=== PATIENT | female | born 1975 | race Caucasian/White ===

== ENCOUNTER → 2018-07-21 | Emergency (ER) | payer OTHER ==
[~2018-07-21] VITALS: Ht 157.5 cm; Wt 84.4 kg
[~2018-07-21] MED LIST: LEVSIN/SL0.125 MG PO; METOPROLOL TART25 MG PO; PEPCID40 MG PO; ZOFRAN4 MG PO
== END | disposition home or self-care (01) ==
LOC: ER 00:35
DX: E07.89 Other specified disorders of thyroid (principal); R00.2 Palpitations; I10 Essential (primary) hypertension

== ENCOUNTER → 2021-02-09 | Outpatient (CLI) | payer OTHER | END | disposition home or self-care (01) | LOC: SONOGRAMA 13:46 | PROVIDERS: ATTEND Surgery | DX: D24.2 Benign neoplasm of left breast (principal); N60.11 Diffuse cystic mastopathy of right breast; N60.12 Diffuse cystic mastopathy of left breast ==